=== PATIENT | female | born 1945 | race Caucasian/White ===

== ENCOUNTER 2019-08-10 12:42 | Outpatient (CLI) | payer MEDICARE, SELFPAY ==
--- NOTE | 2019-08-10 12:53 | ECHO_ITS ---
Patient Info Name: Breonna Vasquez Age: 73 years : 1945 Gender: Female Ht: 66 in Wt: 165 lbs BSA: 1.88 m2 HR: 56 bpm BP: 127 / 70 mmHg Heart Rhythm: Sinus Rhythm Technical Quality: Fair Exam Date: 08/10/2019 12:56 PM Exam Location: [facility] Patient Status: Outpatient Admit Date: 08/10/2019 Staff Ordering Physician: Mitali Masters MD Service Order Taker: Guerline Flores RDCS Attending Provider: Mitali Masters MD Referring Physician: Alex Engle ; Exam Type: CA echo doppler color flow Study Info Indications R06.02 - Shortness of breath Complete two-dimensional, color flow and Doppler transthoracic echocardiogram is performed. Summary 1. Left ventricular chamber dimension is normal. 2. Left ventricular systolic function is normal, estimated at 55-60%. 3. Right ventricular chamber dimension is normal. 4. There is mild aortic valve sclerosis. 5. Moderate pulmonary hypertension, estimated pulmonary arterial systolic pressure is 60 mmHg. Left Ventricle Left ventricular chamber dimension is normal. Left ventricular systolic function is normal, estimated at 55-60%. The left ventricular diastolic function is normal. Right Ventricle Right ventricular chamber dimension is normal. Left Atria Left atrial chamber dimension is normal. Right Atria Right atrial chamber dimension is mildly enlarged. Atrial Septum Intact interatrial septum visualized by color flow imaging. Aortic Valve The aortic valve is trileaflet. There is mild aortic valve sclerosis. Pulmonic Valve The pulmonic valve is not well visualized. Mitral Valve The mitral valve has normal leaflets and calcified annulus. There is no mitral valve regurgitation. Tricuspid Valve The tricuspid valve leaflets are normal. There is mild tricuspid valve regurgitation. Moderate pulmonary hypertension, estimated pulmonary arterial systolic pressure is 60 mmHg. Pericardium/Pleural The pericardium appears normal. Aorta The aortic root size at the sinus of Valsalva is normal. Left Ventricular Outflow Tract Name Value Normal LVOT 2D LVOT Diameter 2.0 cm LVOT Doppler LVOT Peak Gradient 4 mmHg LVOT Mean Gradient 2 mmHg LVOT VTI 23 cm LVOT VTI/AV VTI Ratio 0.6 LVOT Stroke Volume 72 ml LVOT CO 4.0 l/min LVOT CI 2.1 l/min/m2 Pulmonic Valve Name Value Normal RVOT Doppler RVOT Peak Gradient 1 mmHg PV Doppler PV Peak Gradient 4 mmHg Mitral Valve Name
== END 2019-08-10 12:43 | disposition home or self-care (01) ==
PROVIDERS: Family Provider Internal Medicine Rheumatology; Visit Provider Internal Medicine Critical Care Medicine
DX: R06.02 Shortness of breath (principal)
CPT/HCPCS: 93306

== ENCOUNTER → 2020-01-21 12:41 | Outpatient (CLI) | payer MEDICARE, SELFPAY ==
--- NOTE | ~2020-01-21 | XR_ITS ---
XR chest 2V DATE: 01/21/2020 13:10 INDICATION: Interstitial lung disease, lung nodule. Smoker. TECHNIQUE: PA and lateral views COMPARISON: 06/04/2019 CT chest FINDINGS: Heart size appears within normal range. Is aortic calcification and unfolding. No hilar or mediastinal enlargement is evident. Chronic interstitial lung changes are noted, particularly in the periphery of the lung brunson with ev idence of honeycombing, in a pattern typical for usual interstitial pneumonia. No apparent pulmonary consolidation or pleural effusion. No pulmonary vascular congestion or pneumoth orax. IMPRESSION: Interstitial lung disease with usual interstitial pneumonia pattern Aortic atherosclerosis Reviewed, dictated and finalized at location B.
== END ==
DX: J84.112 Idiopathic pulmonary fibrosis (principal); J84.9 Interstitial pulmonary disease, unspecified; I70.0 Atherosclerosis of aorta
CPT/HCPCS: 71046

== ENCOUNTER → 2020-02-22 13:26 | Outpatient (CLI) | payer MEDICARE, SELFPAY ==
--- NOTE | ~2020-02-22 | MM_ITS ---
EXAMINATION: MM screening [facility] BI [facility] HISTORY: Screening mammogram TECHNIQUE: Craniocaudal and mediolateral oblique 3-D tomosynthesis images were obtained and synthetic 2-D images were generated. CAD analysis was submitted and interpreted. COMPARISON: 11/13/2018, 10/18/2017, 10/13/2016 BREAST PARENCHYMAL COMPOSITION: There are scattered areas of fibroglandular density. FINDINGS: Scattered benign-appearing calcifications are present. There is no evidence of suspicious m ass, calcification, or architectural distortion to suggest malignancy in either breast. There has bee n no suspicious interval change. IMPRESSION: 1. No mammographic evidence of malignancy. 2. Recommend routine screening mammography in one year. BI-RADS Category 2: Benign finding(s). Reviewed, dictated and finalized at location A.
== END ==
PROVIDERS: PCP Family Medicine; Visit Provider Obstetrics & Gynecology
DX: Z12.31 Encounter for screening mammogram for malignant neoplasm of breast (principal)
CPT/HCPCS: 77063; 77067

== ENCOUNTER 2020-05-20 11:00 | Outpatient (RCR) | payer MEDICARE, SELFPAY ==
[2020-02-23 15:46] VITALS: PULSE 57
== END 2020-05-20 23:59 | disposition home or self-care (01) ==
LOC: ANHCPREHAB 11:00
PROVIDERS: PCP Family Medicine
DX: J84.112 Idiopathic pulmonary fibrosis (principal)
CPT/HCPCS: 97150; G0239; G0424

== ENCOUNTER 2020-06-17 11:00 | Outpatient (RCR) | payer MEDICARE, SELFPAY ==
[2020-05-24 00:02] VITALS: PULSE 57
== END 2020-06-17 17:30 | disposition home or self-care (01) ==
LOC: ANHCPREHAB 11:00
PROVIDERS: PCP Family Medicine
DX: J84.112 Idiopathic pulmonary fibrosis (principal)
CPT/HCPCS: 97150; G0239; G0424

== ENCOUNTER 2020-07-04 12:42 | Outpatient (CLI) | payer MEDICARE, SELFPAY ==
--- NOTE | 2020-07-05 15:17 | WPDSIXMINUTE ---
Six Minute Walk This is a 6 minutes walk study. Findings: Patient performed a 6 minutes walk on 6 L oxygen which is her home setting. Initial settings at baseline were saturation 98% and heart rate 60 8%. Patient walked a total of 304.8 ft and at the end of the test her heart rate was 101 and her saturation was 96%. There are no prior studies for comparison.
== END 2020-07-04 12:43 | disposition home or self-care (01) ==
PROVIDERS: PCP Family Medicine; Referring Provider Internal Medicine Critical Care Medicine
DX: J84.9 Interstitial pulmonary disease, unspecified (principal)
CPT/HCPCS: 94618

== ENCOUNTER → 2020-10-10 09:20 | Outpatient (CLI) | payer MEDICARE, SELFPAY ==
--- NOTE | ~2020-10-10 | XR_ITS ---
EXAMINATION: XR foot RT min 3V EXAM DATE: 10/10/2020 09:43 INDICATION: L08.9 - Local infection of the skin and subcutaneous tissue, unspecified . Severe fungal infection in rt 1st digit 4-6 wks ago, still having some sharp pain in 1st digit. TECHNIQUE: Right foot dorsoplantar, lateral and oblique projections obtained and reviewed. Compariso n is made to prior examination from 02/25/2012. FINDINGS: There is mild to moderate right 1st metatarsophalangeal joint primary osteoarthritis. Mild hallux valgus. There are no bony erosions identified, 1st tuft intact. There are no acute fractures or dislocations identified. There is no subcutaneous gas. The soft tissue is unremarkable. There are no radiopaque foreign bodies. IMPRESSION: 1. No radiographic evidence of osteomyelitis. 2. 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 Reviewed, dictated and finalized at location A.
--- NOTE | ~2020-10-10 | XR_ITS ---
EXAMINATION: XR chest 2V DATE: 10/10/2020 09:43 INDICATION: Fever, unspecified TECHNIQUE: PA and lateral views of the chest are obtained. COMPARISON: 01/21/2020 FINDINGS: There are chronic and unchanged reticular opacities with a peripheral predominance. No acut e airspace opacities are identified. There is no pleural effusion or pneumothorax. The cardiomediasti nal silhouette is normal. There is mild thoracic spondylosis. IMPRESSION: 1. Chronic interstitial lung disease without acute cardiopulmonary abnormality. Reviewed, dictated and finalized at location B.
== END ==
PROVIDERS: PCP Family Medicine; Visit Provider Family Medicine
DX: R10.11 Right upper quadrant pain (principal); L08.9 Local infection of the skin and subcutaneous tissue, unspecified; R50.9 Fever, unspecified; M19.071 Primary osteoarthritis, right ankle and foot; J84.9 Interstitial pulmonary disease, unspecified
CPT/HCPCS: 71046; 73630

== ENCOUNTER → 2020-10-13 10:24 | Outpatient (CLI) | payer MEDICARE, SELFPAY ==
--- NOTE | ~2020-10-13 | US_ITS ---
EXAMINATION: US abdomen complete DATE: 10/13/2020 10:53 INDICATION: Unspecified abdominal pain TECHNIQUE: Multiple grayscale and Doppler ultrasound images of the abdomen were obtained. COMPARISON: None available FINDINGS: The head and body of the pancreas are normal. The pancreatic tail is obscured by bowel gas. The liver is normal with normal echogenicity and echotexture. No surface nodularity. Normal hepatope nicolette flow in the main portal vein. There are multiple hyperechoic areas within the gallbladder. One me asuring 12 mm appears to connect to the gallbladder wall by a thin stalk. There is no gallbladder wal l thickening or pericholecystic fluid. The normal common bile duct measures 4.2 mm. There was no sono graphic Dempsey sign. The visualized portions of the aorta and inferior vena cava are normal. The right kidney measures 10.5 x 4.7 x 5 cm. The left kidney measures 9.1 x 6.5 x 5.2 cm. The kidneys demonstrate normal parenchymal echogenicity. There is no hydronephrosis. The spleen is normal in davian earance and measures 11.5 cm. IMPRESSION: 1. No sonographic correlate for the patient's symptoms. 2. Multiple gallbladder polyps measuring up to 12 mm. Recommend surgical consultation. Reviewed, dictated and finalized at location B. IMPRESSION: 1. No sonographic correlate for the patient's symptoms. 2. Multiple gallbladder polyps measuring up to 12 mm. Recommend surgical consul tation.
== END ==
PROVIDERS: PCP Family Medicine; Visit Provider Family Medicine
DX: R10.9 Unspecified abdominal pain (principal); K82.4 Cholesterolosis of gallbladder
CPT/HCPCS: 76700

== ENCOUNTER 2020-12-02 13:48 | Outpatient (CLI) | payer MEDICARE, SELFPAY ==
--- NOTE | 2020-12-02 13:52 | ECG_ITS ---
Measurements Intervals [place] Rate: 66 P: 38 NE: 165 QRS: -26 QRSD: 86 T: 17 QT: 378 QTc: 397 Interpretive Statements SINUS RHYTHM DELAYED PRECORDIAL R/S TRANSITION BASELINE ARTIFACT- II, III, AVR, AVL, AVF, V1-V6 BORDERLINE ECG Electronically Signed On 12-02-2020 14:52:23 CDT by Gabe Fernandez D.O.
== END 2020-12-02 13:49 | disposition home or self-care (01) ==
LOC: ANHCARD 13:50
PROVIDERS: PCP Family Medicine; Visit Provider Family Medicine
DX: R06.02 Shortness of breath (principal)
CPT/HCPCS: 93005

== ENCOUNTER 2021-01-23 02:15 | Day surgery (SDC) | payer MEDICARE, SELFPAY ==
[2021-01-13 09:20] VITALS: BMI 26.6
[2021-01-23 09:34] VITALS: BP 120/62; PULSE 79; RESP 20; TEMP 36.3; O2SAT 100; BMI 25.9
--- NOTE | 2021-01-23 09:48 | SUR.PREOP ---
Upon COVID screening, pt stated she has been getting low grade fevers the past couple of months ranging from 99-101 and has diarrhea occasionally. Stated diarrhea is intermittent as are the fevers. Temperature usually elevates after eating and only lasts [address] Ayala aware.
--- NOTE | 2021-01-23 09:53 | WPDANESEPPF ---
Anes - Initial Pre Proc Eval Procedure: Operation Date: 01/23/21 10:00 Proposed Procedures p Esophagogastroduodenoscopy & Screening Colonoscopy - Cornell Ayala MD Date/Time: 01/23/21 09:53 Surgeon: Cornell Ayala MD Pre Op Diagnosis: family hx of colon ca, gerd, epigastric pain Patient Data Age: 75 Gender: F Height: 1.68 m Weight: 72.8 kg Last Vital Signs Temp 36.3 C L 01/23/21 09:34 Pulse 79 01/23/21 09:34 Resp 20 01/23/21 09:34 BP 120/62 01/23/21 09:34 Pulse Ox 100 01/23/21 09:34 Allergies Allergy/AdvReac Type Severity Reaction Status Date / Time No Known Allergies Allergy Mild Verified 01/13/21 09:17 Home Medications Medication Instructions Recorded Confirmed Type aspirin 325 mg tablet 325 mg PO DAILY 05/14/19 01/13/21 History metoprolol succinate 25 mg 25 mg PO DAILY 05/14/19 01/13/21 History tablet,extended release 24 hr coenzyme Q10 100 mg PO DAILY 02/23/20 01/13/21 History nintedanib 100 mg capsule 100 mg PO Q12H 07/05/20 01/13/21 History omeprazole 10 mg capsule,delayed 20 mg PO DAILY #90 cap 12/19/20 01/13/21 Rx release atorvastatin 40 mg tablet 40 mg PO DAILY #90 tablet 01/17/21 Rx Patient hx anesthesia problems: none Family hx anesthesia problems: none PMFSH Past Medical History Medical History Arthritis Chronic hypoxemic respiratory failure Emphysema lung Gallbladder polyp Heart disease High cholesterol IPF (idiopathic pulmonary fibrosis) Surgical History Surgical History H/O cardiac catheterization H/O tubal ligation S/P cataract extraction Stented coronary artery Family History Family History Mother Family history of thyroid disease Family history of lung cancer Sibling Diabetes mellitus Depression Family history of arthritis ILD (interstitial lung disease) Father Family history of arthritis Family history of chronic obstructive pulmonary disease Family history of lymphoma Son Tetralogy of Fallot Daughter Depression Family history of arthritis Social History Social History Smoking packs per day: 1 Smoking cigarettes per day: 20.0 Years smoked: 59 Smoking pack-years: 59.00 Smoking status: Former smoker Tobacco type: cigarettes Second hand tobacco smoke exposure: Yes Smoking end date: 07/01/19 Additional smoking assessment comments: quit fall 2018 Alcohol intake: former Alcohol use details: rarely Substance use: never Substance use type: does not use Living arrangements: with family Gender identity (if verbalized by the patient): Female Spiritual care concerns: No Anes - Eval Final PreProcedure Day of Procedure 01/23/21 09:53 Patient weight: normal Heart: regular rate and rhythm Lungs: clear to auscultation Airway: Mallampati scale class II Neurological: alert and oriented Last oral intake: >/= 8 hours ASA classification: IV Emergent: no Anesthetic plan: proceed Anesthesia type and monitoring: general GIVS and standard monitoring Informed Consent: The patient's anesthetic plan and its attendant risks and benefits were discussed with the patient/family/POA. Questions were solicited and answers provided to the satisfaction of the patient/family/POA.
[2021-01-23] MEDS: LACTATED RINGERS 1,000 ML 30 ML IV CONT (09:54)
--- NOTE | 2021-01-23 10:09 | WPDGICN ---
Assessment and Plan Assessment and plan (1) Gallbladder polyp: Code(s): K82.4 - Cholesterolosis of gallbladder Status: Acute Assessment and Plan: 1.2cm gallbladder polyp. For this reason surgical follow-up is anticipated for cholecystectomy. Likely this contributes to her right upper quadrant abdominal pain. (2) Epigastric abdominal pain: Code(s): R10.13 - Epigastric pain Status: Acute Assessment and Plan: Patient complains epigastric pain. She feels gas catching in her chest. She denies any dysphagia or weight loss. Plan to evaluate with EGD prior to cholecystectomy. (3) Family history of colonic polyps: Code(s): Z83.71 - Family history of colonic polyps Status: Acute Assessment and Plan: Patient has a family history of colon polyps in both her father and sister they are reported to have colon cancer. Follow-up patient should have follow-up colonoscopy now on a 5 year intervals in the future. GI Consult Note Consult date/time: 01/23/21 10:09 HPI: Breonna Vasquez is a 75 year old female Presents for GI endoscopy. Patient's family history is significant both father and sister have had colon cancer. Patient states that her bowel habits are normal. She denies abdominal pain. She has had no bleeding. Patient presents today for follow-up screening colonoscopy. Additionally patient complains of ongoing right upper quadrant abdominal pain. She feels as though gas will catch in her chest. She denies any dysphagia or weight loss. Desires an EGD. Recent gallbladder ultrasound reveals a 1.5cm gallbladder polyp. For this reason she is anticipated to have cholecystectomy is currently seen a surgeon. Review of Systems Review of Systems: All systems reviewed & are unremarkable except as noted in HPI and below PMFSH Past Medical History Medical History Arthritis Chronic hypoxemic respiratory failure Emphysema lung Gallbladder polyp Heart disease High cholesterol IPF (idiopathic pulmonary fibrosis) Surgical History Surgical History H/O cardiac catheterization H/O tubal ligation S/P cataract extraction Stented coronary artery Family History Family History Mother Family history of thyroid disease Family history of lung cancer Sibling Diabetes mellitus Depression Family history of arthritis ILD (interstitial lung disease) Father Family history of arthritis Family history of chronic obstructive pulmonary disease Family history of lymphoma Son Tetralogy of Fallot Daughter Depression Family history of arthritis Social History Social History Smoking packs per day: 1 Smoking cigarettes per day: 20.0 Years smoked: 59 Smoking pack-years: 59.00 Smoking status: Former smoker Tobacco type: cigarettes Second hand tobacco smoke exposure: Yes Smoking end date: 07/01/19 Additional smoking assessment comments: quit fall 2018 Alcohol intake: former Alcohol use details: rarely Substance use: never Substance use type: does not use Living arrangements: with family Gender identity (if verbalized by the patient): Female Spiritual care concerns: No Meds Home Medications and Allergies Home Medications Medication Instructions Recorded Confirmed Type aspirin 325 mg tablet 325 mg PO DAILY 05/14/19 01/13/21 History metoprolol succinate 25 mg 25 mg PO DAILY 05/14/19 01/13/21 History tablet,extended release 24 hr coenzyme Q10 100 mg PO DAILY 02/23/20 01/13/21 History nintedanib 100 mg capsule 100 mg PO Q12H 07/05/20 01/13/21 History omeprazole 10 mg capsule,delayed 20 mg PO DAILY #90 cap 12/19/20 01/13/21 Rx release atorvastatin 40 mg tablet 40 mg PO DAILY #90 tablet 01/17/21 Rx All
[2021-01-23 10:49] VITALS: BP 96/52; PULSE 72; RESP 17; O2SAT 100
[2021-01-23 10:59] VITALS: BP 98/58; PULSE 68; RESP 15; O2SAT 100
[2021-01-23 11:09] VITALS: BP 136/66; PULSE 69; RESP 18; O2SAT 100
== END 2021-01-23 11:29 | disposition home or self-care (01) ==
PROVIDERS: PCP Family Medicine; Visit Provider Internal Medicine Gastroenterology
PROC: 0DJ08ZZ Inspection of Upper Intestinal Tract, Via Natural or Artificial Opening Endoscopic (ICD-10-PCS; CPT 43235; principal; 2021-01-23 10:00)
DX: Z12.11 Encounter for screening for malignant neoplasm of colon (principal); K64.8 Other hemorrhoids; K57.30 Diverticulosis of large intestine without perforation or abscess without bleeding; Z80.0 Family history of malignant neoplasm of digestive organs; R10.13 Epigastric pain; K82.4 Cholesterolosis of gallbladder; Z83.71 Family history of colonic polyps; J96.11 Chronic respiratory failure with hypoxia; J43.9 Emphysema, unspecified; I51.9 Heart disease, unspecified; E78.00 Pure hypercholesterolemia, unspecified; J84.112 Idiopathic pulmonary fibrosis; Z95.5 Presence of coronary angioplasty implant and graft; Z87.891 Personal history of nicotine dependence; Z79.82 Long term (current) use of aspirin
CPT/HCPCS: 43239; G0105; 87081; J2704; J7120

== ENCOUNTER 2021-02-23 08:02 | Outpatient (CLI) | payer MEDICARE, SELFPAY ==
[2021-02-23 08:35] LABS: Alanine Aminotransferase 18 U/L (4-35); Albumin Level 4.2 g/dL (3.5-5.1); Alkaline Phosphatase 97 U/L (38-126); Amylase 80 U/L (30-110); Aspartate Amino Transferase 29 U/L (14-36); Bilirubin,Total 0.4 mg/dL (0.2-1.3); Lipase 78 U/L (23-300)
== END 2021-02-23 08:03 | disposition home or self-care (01) ==
LOC: ANHSURGERY 08:03
PROVIDERS: PCP Family Medicine; Visit Provider Surgery
DX: Z01.812 Encounter for preprocedural laboratory examination (principal); K82.4 Cholesterolosis of gallbladder
CPT/HCPCS: 36415; 80076; 82150; 83690; 86850; 86900; 86901

== ENCOUNTER 2021-02-28 01:30 | Day surgery (SDC) | payer MEDICARE, SELFPAY ==
[2021-02-22 13:54] VITALS: BMI 26.6
--- NOTE | 2021-02-27 14:04 | P.PNAN_ITS ---
Anes - Initial Pre Proc Eval Procedure: Operation Date: 02/28/21 12:00 Proposed Procedures p Laparoscopic Cholecystectomy, Possible Open - Chaitanya Herring DO Date/Time: 02/27/21 14:04 Surgeon: Chaitanya Herring DO Pre Op Diagnosis: gallbladder polyp Patient Data Age: 75 Gender: F Height: 1.68 m Weight: 74.85 kg Allergies Allergy/AdvReac Type Severity Reaction Status Date / Time No Known Allergies Allergy Mild Verified 02/28/21 10:15 Home Medications Medication Instructions Recorded Confirmed Type metoprolol succinate 25 mg 25 mg PO HS 05/14/19 02/22/21 History tablet,extended release 24 hr coenzyme Q10 200 mg PO HS 02/23/20 02/22/21 History nintedanib 100 mg capsule 100 mg PO Q12H 07/05/20 02/22/21 History atorvastatin [Lipitor] 40 mg PO HS 02/22/21 02/22/21 History omeprazole 20 mg PO PRN PRN 02/22/21 02/22/21 History aspirin 81 mg PO DAILY 02/28/21 02/28/21 History Patient hx anesthesia problems: none Family hx anesthesia problems: none PMFSH Past Medical History Medical History (Updated 02/27/21 @ 14:05 by Ray Santos DO) Arthritis Chronic hypoxemic respiratory failure Coronary artery disease Emphysema lung Gallbladder polyp GERD (gastroesophageal reflux disease) Heart disease High cholesterol Hypertension IPF (idiopathic pulmonary fibrosis) Surgical History Surgical History (Updated 02/27/21 @ 14:05 by Ray Santos DO) H/O cardiac catheterization H/O tubal ligation S/P cataract extraction Stented coronary artery x1, 2009 Family History Family History Mother Family history of thyroid disease Family history of lung cancer Sibling Diabetes mellitus Depression Family history of arthritis ILD (interstitial lung disease) Father Family history of arthritis Family history of chronic obstructive pulmonary disease Family history of lymphoma Son Tetralogy of Fallot Daughter Depression Family history of arthritis Social History Social History Smoking packs per day: 1 Smoking cigarettes per day: 20.0 Years smoked: 59 Smoking pack-years: 59.00 Smoking status: Former smoker Tobacco type: cigarettes Second hand tobacco smoke exposure: Yes Smoking end date: 07/01/19 Additional smoking assessment comments: quit fall 2018 Alcohol intake: former Alcohol use details: rarely Substance use: never Substance use type: does not use Living arrangements: with family Gender identity (if verbalized by the patient): Female Spiritual care concerns: No Anes - Eval Final PreProcedure Day of Procedure 02/27/21 14:04 Patient weight: overweight Heart: regular rate and rhythm Lungs: clear to auscultation and normal air movement Airway: Mallampati scale class II Neurological: alert and oriented Last oral intake: >/= 8 hours ASA classification: IV Emergent: no Anesthetic plan: proceed Anesthesia type and monitoring: general ETT and standard monitoring Informed Consent: The patient's anesthetic plan and its attendant risks and benefits were discussed with the patient/family/POA. Questions were solicited a nd answers provided to the satisfaction of the patient/family/POA.
[2021-02-28] VITALS (9 sets, daily range): BP systolic 115–154; BP diastolic 50–67; PULSE 59–85; RESP 17–22; TEMP 36.7–36.8; O2SAT 99–100; BMI 26.3
[2021-02-28] MEDS: LACTATED RINGERS 1,000 ML 30 ML IV CONT (10:51)
[2021-02-28] MEDS: ACETAMINOPHEN 500 MG TABLET 1000 MG PO (10:52)
[2021-02-28] MEDS: KETOROLAC 15 MG/ML VIAL (*BKC) IV PUSH (10:54)
--- NOTE | 2021-02-28 10:59 | PM.IMHP ---
H&P: HPI History of Present Illness Date/Time: 02/28/21 10:59 Chief Complaint: Upper abdominal pain Narrative: This is a 75-year-old woman who presents with upper abdominal pain and findings gallbladder polyps. She now presents for her laparoscopic cholecystectomy. She reports no changes since last seen in the office for Review of Systems Review of Systems: All systems reviewed & are unremarkable except as noted in HPI and below Constitutional: Constitutional: Denies chills, Denies fever(s), Denies headache(s) and Denies weight loss Eyes: Eyes: Denies change in vision ENT: Denies dizziness, Denies headache(s), Denies neck mass and Denies throat swelling Cardiovascular: Cardiovascular: Denies chest pain, Denies lightheadedness and Denies dyspnea Respiratory: Respiratory: Denies cough, Denies dyspnea and Denies wheezing Gastrointestinal: Gastrointestinal: Denies abdominal pain, Denies change in bowel habits, Denies nausea and Denies vomiting Genitourinary: Genitourinary: Denies hematuria and Denies dysuria Musculoskeletal: Musculoskeletal: Reports as per HPI Integumentary/Breasts: Skin/Breast: Reports as per HPI Neurologic: Denies dizziness and Denies headache(s) Allergic/Immunologic: Allergic/Immunologic: Denies throat swelling and Denies wheezing PMF Past Medical History Medical History Arthritis Chronic hypoxemic respiratory failure Coronary artery disease Emphysema lung Gallbladder polyp GERD (gastroesophageal reflux disease) Heart disease High cholesterol Hypertension IPF (idiopathic pulmonary fibrosis) Surgical History Surgical History (Updated 02/27/21 @ 14:05 by Ray Santos DO) H/O cardiac catheterization H/O tubal ligation S/P cataract extraction Stented coronary artery x1, 2009 Family History Family History Mother Family history of thyroid disease Family history of lung cancer Sibling Diabetes mellitus Depression Family history of arthritis ILD (interstitial lung disease) Father Family history of arthritis Family history of chronic obstructive pulmonary disease Family history of lymphoma Son Tetralogy of Fallot Daughter Depression Family history of arthritis Social History Social History Smoking packs per day: 1 Smoking cigarettes per day: 20.0 Years smoked: 59 Smoking pack-years: 59.00 Smoking status: Former smoker Tobacco type: cigarettes Second hand tobacco smoke exposure: Yes Smoking end date: 07/01/19 Additional smoking assessment comments: quit fall 2018 Alcohol intake: former Alcohol use details: rarely Substance use: never Substance use type: does not use Living arrangements: with family Gender identity (if verbalized by the patient): Female Spiritual care concerns: No Meds Home Medications and Allergies Home Medications Medication Instructions Recorded Confirmed Type metoprolol succinate 25 mg 25 mg PO HS 05/14/19 02/28/21 History tablet,extended release 24 hr coenzyme Q10 200 mg PO HS 02/23/20 02/22/21 History nintedanib 100 mg capsule 100 mg PO Q12H 07/05/20 02/22/21 History atorvastatin [Lipitor] 40 mg PO HS 02/22/21 02/22/21 History omeprazole 20 mg PO PRN PRN 02/22/21 02/22/21 History aspirin 81 mg PO DAILY 02/28/21 02/28/21 History Allergies Allergy/AdvReac Type Severity Reaction Status Date / Time No Known Allergies Allergy Mild Verified 02/28/21 10:15 Exam Const: General: no acute distress and alert Orientation/consciousness: patient oriented x3 HENMT: Head: normocephalic and atraumatic Ears: hearing grossly normal bilaterally General nose exam: Normal nares present Mouth: Yes Normal oral and palatal mucosa present Eyes: Periorbital: periorbital findings normal Sclera: sclerae normal EOM: EOMs i
--- NOTE | 2021-02-28 11:00 | WPDHPUPDATE1 ---
History and Physical Update Update Date/Time: 02/28/21 11:00 History and Physical has been reviewed, including an updated exam of the patient. There are NO changes in the patient's condition. Risks, benefits, and alternatives have been discussed and questions answered. Patient agrees to proceed with procedure.
[2021-02-28] MEDS: ceFAZolin 2 GM/D5W 50 ML 2 GM/50 ML BAG IVPB (11:19)
--- NOTE | 2021-02-28 12:07 | W.PM.PROC2 ---
Procedure Note - Detailed Date of Procedure 02/28/21 Pre-op Diagnosis gallbladder polyp Post-op Diagnosis same Procedure Performed Laparoscopic Cholecystectomy Surgeon Chaitanya Herring, DO Anesthesia general and local (0.25% bupivacaine with epinephrine) Indications This is a 75-year-old woman who presents with right upper quadrant abdominal pains over the past 2-3 months. She states that she has had issues off and on for decades. She had a gallbladder ultrasound that showed multiple polyps. Other workup including colonoscopy an EGD was normal. Discussions were made with the patient about treatment options and decision was made to proceed with laparoscopic cholecystectomy, possible open. Findings Laparoscopic cholecystectomy was performed. There were a few pericholecystic adhesions, but no other significant abnormalities. The cystic duct appeared normal in size. The gallbladder was removed and sent to the lab for pathology. Description of Procedure Procedure as well as risks, benefits, and alternatives were discussed with patient. Written consent was obtained and placed in chart prior to procedure. The patient was brought back to surgical suite. Patient was placed in supine position on operating table. Time-out was done to confirm patient and procedure. Patient was then intubated by the anesthesia department. Abdomen was prepped and draped in sterile fashion using chlorhexidine prep. 0.5% bupivacaine with epinephrine was infiltrated at each site of incision. A 5 millimeter incision was made near the umbilicus, and a 5 millimeter Optiview trocar was advanced through the abdominal layers under direct visualization. Once inside the abdominal cavity, carbon dioxide was insufflated to create a pneumoperitoneum. The camera was inserted and the abdomen was inspected. No immediate abnormalities were identified. The patient was placed in reverse Trendelenburg position and rotated slightly to the left. An 11 millimeter incision was made in the subxiphoid region, and an 11 millimeter trocar was inserted under direct visualization. Two 5 millimeter incisions were made in the right upper quadrant, and two 5 millimeter trocars were inserted under direct visualization. The gallbladder was identified and grasped at the fundus and retracted superiorly. It was then grasped at the infundibulum retracted laterally. Careful dissection around the neck of the gallbladder was performed using blunt dissection with a [place] grasper and hook electrocautery. The cystic duct was identified, and a window was created behind it. The cystic artery was also identified and a window was created behind it. The critical view of safety was identified, visualizing the cystic duct running directly into the neck of the gallbladder, and the cystic artery running directly into the wall of the gallbladder. A 5 millimeter clip manager critical care unit was then used to place 2 clips proximally and 1 clip distally on both the cystic duct and cystic artery. They were then both transected using endoscopic scissors. Once safely away from the analia hepatitis, the gallbladder was dissected free from the liver bed using hook electrocautery. Hemostasis was achieved along the way. The gallbladder was removed completely and then removed through the subxiphoid port. The liver bed was then inspected. Hemostasis appeared adequate, and our clips appeared secure. The area was gently irrigated with sterile saline. No other abnormalities were seen. The patient was flattened out in bed, and 1 final inspection was made around the abdominal cavity. The subxiphoid port was removed, and a Luis Alberto Katy cone was used to approximate the fascia with an 0-Vicryl simple interrupted suture. The remaining ports were then removed under direct visualization, the camera was removed, and the pneumoperitoneum was released. The skin of the incisions was approximated using 4-0 Monocryl subcuticular sutures. Exofin glue was applied o
== END 2021-02-28 14:17 | disposition home or self-care (01) ==
PROVIDERS: PCP Family Medicine; Visit Provider Surgery
PROC: 0FT44ZZ Resection of Gallbladder, Percutaneous Endoscopic Approach (ICD-10-PCS; CPT 47562; principal; 2021-02-28 12:00)
DX: K81.1 Chronic cholecystitis (principal); D13.5 Benign neoplasm of extrahepatic bile ducts; M19.90 Unspecified osteoarthritis, unspecified site; J43.9 Emphysema, unspecified; K21.9 Gastro-esophageal reflux disease without esophagitis; E78.00 Pure hypercholesterolemia, unspecified; J84.10 Pulmonary fibrosis, unspecified; I25.10 Atherosclerotic heart disease of native coronary artery without angina pectoris; Z87.891 Personal history of nicotine dependence; Z79.82 Long term (current) use of aspirin; I11.9 Hypertensive heart disease without heart failure
CPT/HCPCS: 47562; 36415; 80076; 82150; 83690; 86850; 86900; 86901; 88304; A9270; J0690; J1100; J1885; J2405; J2704; J2710; J3010; J7030; J7120

== ENCOUNTER → 2021-05-02 12:49 | Outpatient (CLI) | payer MEDICARE, SELFPAY ==
--- NOTE | ~2021-05-02 | MM_ITS ---
EXAMINATION: MM screening [facility] BI [facility] HISTORY: Screening TECHNIQUE: Craniocaudal and mediolateral oblique 3-D tomosynthesis images were obtained and synthetic 2-D images were generated. CAD analysis was submitted and interpreted. COMPARISON: Comparison to multiple prior studies sequentially, with oldest reviewed study dated 08/24. BREAST PARENCHYMAL COMPOSITION: There are scattered areas of fibroglandular density. FINDINGS: There are benign bilateral breast calcifications. There is no evidence of suspicious mass, calcification, or architectural distortion to suggest malignancy in either breast. There has been no suspicious interval change. IMPRESSION: 1. No mammographic evidence of malignancy. 2. Recommend routine screening mammography in one year. BI-RADS Category 2: Benign finding(s). Reviewed, dictated and finalized at location A.
== END ==
PROVIDERS: PCP Family Medicine; Visit Provider Obstetrics & Gynecology
DX: Z12.31 Encounter for screening mammogram for malignant neoplasm of breast (principal)
CPT/HCPCS: 77063; 77067

== ENCOUNTER 2021-10-07 09:53 | Emergency (ER) | payer MEDICARE, SELFPAY ==
--- NOTE | 2021-10-07 10:03 | ED.URI ---
HPI - URI/Sore Throat General Chief Complaint: Upper Respiratory Infection Stated Complaint: uri Time Seen by Provider: 10/07/21 10:15 Source: patient and RN notes reviewed Mode of arrival: ambulatory Limitations: no limitations History of Present Illness HPI Narrative: 76-year-old female with history of emphysema and hypertension presents with concern for 4-day history of fatigue, chills, cough, rhinorrhea, nasal congestion, sneezing, sinus pain and pressure. She denies shortness of breath. She is on 2 L nasal cannula at baseline. She reports has been using Coricidin at home without relief. She took a Covid test at home that was negative. She is vaccinated and boosted for Covid and has had a flu shot. MD elicited complaint: cough, rhinorrhea and nasal congestion Related Data Home Medications Medication Instructions Recorded Confirmed metoprolol succinate 25 mg 25 mg PO HS 05/14/19 10/07/21 tablet,extended release 24 hr coenzyme Q10 200 mg PO HS 02/23/20 10/07/21 nintedanib 100 mg capsule 100 mg PO Q12H 07/05/20 10/07/21 omeprazole 20 mg PO PRN PRN 02/22/21 10/07/21 aspirin 325 mg tablet 325 mg PO DAILY 03/31/21 10/07/21 Allergies Allergy/AdvReac Type Severity Reaction Status Date / Time No Known Allergies Allergy Mild Verified 10/07/21 10:10 Review of Systems Review of Systems: CONSTITUTIONAL: Reports malaise, chills, fatigue EYES: Denies visual changes, redness, or discharge. ENT: Reports rhinorrhea, congestion, sinus pain, and sore throat. CARDIOVASCULAR: Denies chest pain, palpitations, or edema. RESPIRATORY: Reports cough. Denies dyspnea. GASTROINTESTINAL: Denies abdominal pain, nausea, vomiting, diarrhea SKIN: Denies rash or itching. MUSCULOSKELETAL: Denies myalgia. NEUROLOGIC: Denies headache. All systems reviewed & are unremarkable except as noted in HPI and below [facility] Past Medical History Medical History (Updated 10/07/21 @ 10:38 by Suzanne Sutton NP) Arthritis Chronic cholecystitis without calculus Chronic hypoxemic respiratory failure Coronary artery disease Emphysema lung Encounter for immunization Essential hypertension Gallbladder polyp GERD (gastroesophageal reflux disease) Heart disease High cholesterol Hypertension IPF (idiopathic pulmonary fibrosis) Surgical History Surgical History H/O cardiac catheterization H/O tubal ligation Hx laparoscopic cholecystectomy 02/28/21 S/P cataract extraction Stented coronary artery x1, 2010 Family History Family History Mother Family history of thyroid disease Family history of lung cancer Sibling Diabetes mellitus Depression Family history of arthritis ILD (interstitial lung disease) Father Family history of arthritis Family history of chronic obstructive pulmonary disease Family history of lymphoma Son Tetralogy of Fallot Daughter Depression Family history of arthritis Social History Social History Smoking packs per day: 1 Smoking cigarettes per day: 20.0 Years smoked: 59 Smoking pack-years: 59.00 Tobacco type: cigarettes Second hand tobacco smoke exposure: Yes Smoking end date: 07/01/19 Additional smoking assessment comments: quit fall 2018 Alcohol intake: former Alcohol use details: rarely Substance use: never Substance use type: does not use Gender identity (if verbalized by the patient): Female Spiritual care concerns: No Comments At time of signature, agree with nursing past medical, surgical, social and family history. There is no relevant family history pertinent to the presenting complaint Exam Narrative: GENERAL: Well-appearing, well-nourished, and in no acute distress. HEAD: Normocephalic EYES: PERRLA, conjunctivae clear ENT: Nares clear, turbinates edematous and erythematous, clear dischar
[2021-10-07 10:06] VITALS: BP 106/65; PULSE 114; RESP 18; TEMP 36.8; O2SAT 97
== END 2021-10-07 10:45 | disposition home or self-care (01) ==
PROVIDERS: Emergency Provider Nurse Practitioner; PCP Family Medicine
DX: J06.9 Acute upper respiratory infection, unspecified (principal); Z87.891 Personal history of nicotine dependence; M19.90 Unspecified osteoarthritis, unspecified site; I25.10 Atherosclerotic heart disease of native coronary artery without angina pectoris; I10 Essential (primary) hypertension; K21.9 Gastro-esophageal reflux disease without esophagitis; E78.00 Pure hypercholesterolemia, unspecified; J84.112 Idiopathic pulmonary fibrosis; J43.9 Emphysema, unspecified; Z98.49 Cataract extraction status, unspecified eye; Z95.5 Presence of coronary angioplasty implant and graft
CPT/HCPCS: 87804; 99213; G0463

== ENCOUNTER → 2021-12-11 15:23 | Outpatient (CLI) | payer MEDICARE, SELFPAY ==
--- NOTE | ~2021-12-11 | XR_ITS ---
EXAMINATION: XR knee LT 3V DATE: 12/11/2021 15:52 INDICATION: Posterior left knee pain TECHNIQUE: Weight bearing anteroposterior, sunrise, and flexed lateral views of the left knee were ob tained COMPARISON: None. FINDINGS: Alignment is normal. No fracture. Joint spaces appear relatively preserved but with tiny marginal os teophytes are present along the medial and lateral tibial plateaus, the patella and trochlea consiste nt with mild tricompartmental osteoarthritis. Enthesopathic ossicles along the patellar tendon and mo re prominently at the patellar insertion of the distal quadriceps tendon. No joint effusion/layering lipohemarthrosis. Soft tissues are unremarkable. IMPRESSION: 1. Mild tricompartmental osteoarthritis. No acute osseous abnormality. Reviewed, dictated and finalized at location A.
--- NOTE | ~2021-12-11 | XR_ITS ---
EXAMINATION: XR ankle RT min 3V, XR heel RT min 2V DATE: 12/11/2021 15:52 INDICATION: Right ankle pain and numbness at the heel and ankle post twisting injury one day prior. TECHNIQUE: 1. Lateral and axial views of the right calcaneus were obtained. 2. Anteroposterior, oblique, mortise, and lateral views of the right ankle were obtained. COMPARISON: None. FINDINGS: Alignment is normal. No fracture. Joint spaces are relatively preserved. Small Achilles and plantar c alcaneal spurs. Right ankle joint effusion is present. There is also focal soft tissue swelling about the lateral malleolus. IMPRESSION: 1. Right ankle joint effusion and mild soft tissue tissue swelling at the lateral malleolus. No acute osseous abnormality 2. Small Achilles and plantar calcaneal spurs. Reviewed, dictated and finalized at location A. IMPRESSION: 1. Right ankle joint effusion and mild soft tissue tissue swelling at the later al malleolus. No acute osseous abnormality 2. Small Achilles and plantar calcaneal spurs.
== END ==
PROVIDERS: PCP Family Medicine; Visit Provider Physician Assistant Medical
DX: M17.12 Unilateral primary osteoarthritis, left knee (principal); M79.89 Other specified soft tissue disorders; M25.471 Effusion, right ankle; M77.31 Calcaneal spur, right foot
CPT/HCPCS: 73562; 73610; 73650

== ENCOUNTER → 2021-12-21 13:25 | Outpatient (CLI) | payer MEDICARE, SELFPAY ==
--- NOTE | ~2021-12-21 | XR_ITS ---
XR knee RT 2V DATE: 12/21/2021 14:13 INDICATION: Right knee pain TECHNIQUE: Standing AP and lateral views COMPARISON: 07/03/2018 right knee FINDINGS: There is osteopenia. Prominent dystrophic calcifications are noted in the anterior infrapatellar area. Prominent enthesopathy of the superior pole of the patella at the quadriceps tendon insertion site. P rominent periarticular spurring of the patella superiorly. There is mild periarticular spurring at the medial and lateral compartments. No fracture or dislocation or joint effusion, periosteal reaction or bone destruction, radiopaque int ra-articular loose body or chondrocalcinosis is noted. Femoral, popliteal and trifurcation artery calcifications. IMPRESSION: Prominent dystrophic anterior infrapatellar superficial soft tissue calcifications Mild to moderate tricompartment osteoarthritis Reviewed, dictated and finalized at location A.
--- NOTE | ~2021-12-21 | XR_ITS ---
EXAMINATION:XR cervical spine 4-5V DATE: 12/21/2021 14:13 INDICATION: Neck pain TECHNIQUE: AP, lateral, lateral swimmers and odontoid views of the cervical spine are provided. COMPARISON: 12/10/2016 FINDINGS: There are 3 mm of stable retrolisthesis of C5 on C6. There are 2 mm of stable retrolisthesi s of C6 on C7. The odontoid is intact. No fracture is identified. The vertebral body heights are norm al. There is chronic moderate loss of intervertebral disc space height at C5-6 and C6-7 and mild loss of disc space height throughout the remainder of the cervical spine. There is moderate to severe mul tilevel facet and uncovertebral joint osteoarthritis. Prevertebral soft tissues are normal. IMPRESSION: 1. Moderate cervical spondylosis without acute findings or significant interval change. Reviewed, dictated and finalized at location F.
== END ==
PROVIDERS: PCP Family Medicine; Visit Provider Internal Medicine Rheumatology
DX: R76.8 Other specified abnormal immunological findings in serum (principal); M25.50 Pain in unspecified joint; J84.9 Interstitial pulmonary disease, unspecified; M47.812 Spondylosis without myelopathy or radiculopathy, cervical region; M17.11 Unilateral primary osteoarthritis, right knee
CPT/HCPCS: 72050; 73560

== ENCOUNTER → 2022-04-04 14:38 | Outpatient (CLI) | payer MEDICARE, SELFPAY ==
--- NOTE | ~2022-04-04 | XR_ITS ---
XR chest 2V 04/04/2022 14:47 Indication: Upper respiratory infection. Cough. Shortness of breath. Procedure: 2 view chest Comparison: 01/21/2020 Findings: There is chronic interstitial lung disease with subtle progression over time.. No acute foc al pneumonia, edema, effusion or pneumothorax. Impression: 1: Progression of chronic interstitial lung disease. 2: No acute cardiopulmonary disease. Reviewed, dictated and finalized at location B. Impression: 1: Progression of chronic interstitial lung disease. 2: No acute cardiopulmonary disease.
== END ==
PROVIDERS: PCP Family Medicine; Visit Provider Family Medicine
DX: J22 Unspecified acute lower respiratory infection (principal); J84.9 Interstitial pulmonary disease, unspecified
CPT/HCPCS: 71046

== ENCOUNTER → 2022-06-26 16:09 | Outpatient (CLI) | payer MEDICARE, SELFPAY ==
--- NOTE | ~2022-06-26 | MM_ITS ---
EXAMINATION: MM screening [facility] BI [facility] HISTORY: Screening mammogram TECHNIQUE: Craniocaudal and mediolateral oblique 3-D tomosynthesis images were obtained and synthetic 2-D images were generated. CAD analysis was submitted and interpreted. COMPARISON: 05/02/2021, 02/18/2020, 11/13/2018 bilateral screening mammogram examinations BREAST PARENCHYMAL COMPOSITION: There are scattered areas of fibroglandular density. FINDINGS: Scattered bilateral benign calcifications including calcified microhematomas and benign sec retory calcifications. There is no evidence of suspicious mass, calcification, or architectural disto rtion to suggest malignancy in either breast. There has been no suspicious interval change. IMPRESSION: 1. No mammographic evidence of malignancy. 2. Recommend routine screening mammography in one year. BI-RADS Category 2: Benign finding(s). Reviewed, dictated and finalized at location A. RICULTURE INSTRUCTOR
== END ==
PROVIDERS: PCP Family Medicine; Visit Provider Obstetrics & Gynecology
DX: Z12.31 Encounter for screening mammogram for malignant neoplasm of breast (principal)
CPT/HCPCS: 77063; 77067

== ENCOUNTER → 2022-09-28 10:12 | Outpatient (CLI) | payer MEDICARE, SELFPAY ==
--- NOTE | ~2022-09-28 | DEXA_ITS ---
Bone Density Report Name: JANE BAEZA Age: 76 Sex: Female Ethnicity: White Date of : 1945 Indication: postmenopausal; screening for osteoporosis; height loss; asthma or emphysema; Referring Provider: DACIA PICKERING Study: Bone densitometry was performed. Exam Date: September 28, 2022 Accession number: [id number] Bone Density: Region BMD T-score Z-score Classification AP Spine (L1-L4) 1.199 1.4 3.9 Normal Femoral Neck (Left) 0.629 -2.0 0.2 Osteopenia Total Hip (Left) 0.946 0.0 2.0 Normal Femoral Neck (Right) 0.662 -1.7 0.5 Osteopenia Total Hip (Right) 0.890 -0.4 1.5 Normal Total Hip Mean 0.918 -0.2 1.8 Normal World Health Organization criteria for BMD impression classify patients as: Normal (T-score at or above -1.0), Osteopenia (T-score between -1.0 and -2.5), or Osteoporosis (T-score at or below -2.5). 10-year Fracture Risk(1): Major Osteoporotic Fracture 14% Hip Fracture 3.9% Reported Risk Factors: [place] (), Neck BMD=0.629, BMI=23.8 (1) FRAX(R) Version 3.08. Fracture probability calculated for an untreated patient. Fracture probability may be lower if the patient has received treatment. Previous Exams: Region Exam Age BMD T-score BMD Change BMD Change Date g/cm2 vs Baseline vs Previous AP Spine(L1-L4) 09/28/2022 76 1.199 1.4 0.129* 0.111* 07/15/2012 66 1.088 0.4 0.018 0.091* 04/20/2009 63 0.996 -0.5 -0.073* 0.024* 03/24/2007 61 0.973 -0.7 -0.097* -0.097* 02/20/2006 60 1.069 0.2 Total Hip(Left) 09/28/2022 76 0.946 0.0 -0.120* -0.021 07/15/2012 66 0.967 0.2 -0.099* -0.004 04/20/2009 63 0.971 0.2 -0.094* 0.070* 03/24/2007 61 0.901 -0.3 -0.164* -0.164* 02/20/2006 60 1.065 1.0 Total Hip(Right) 09/28/2022 76 0.890 -0.4 -0.009 -0.033* 07/15/2012 66 0.923 -0.2 0.024 -0.022 04/20/2009 63 0.945 0.0 0.046* 0.032* 03/24/2007 61 0.913 -0.2 0.014 0.014 02/20/2006 60 0.899 -0.3 *Denotes significance at 95% confidence level, LSC for AP Spine = 0.022 g/cm2, LSC for Total Hip = 0.027 g/cm2 Clinical Information Provided by Patient: Has used the following medications: Vitamin D Has the following medical conditions: Asthma or Emphysema Patient maximum height was 67 Menopause Age: 46 No regular weight morgan
== END ==
PROVIDERS: PCP Family Medicine; Visit Provider Family Medicine
DX: Z78.0 Asymptomatic menopausal state (principal); M85.852 Other specified disorders of bone density and structure, left thigh; M85.851 Other specified disorders of bone density and structure, right thigh
CPT/HCPCS: 77080